=== PATIENT | female | born 1960 | race Two or more races ===

== ENCOUNTER 2022-08-25 06:25 | Inpatient (IN) | payer BC ==
[2022-08-20 10:24] LABS: Basophils # (auto) 0.1 10 ^3/uL (0-0.2); Basophils % (auto) 0.8 % (0.0-2.0); Eosinophils # (auto) 0.3 10 ^3/uL (0-0.8); Hematocrit 45.4 % (36.0-46.0); Hemoglobin 14.9 g/dL (12.2-16.2); Lymphocytes # (auto) 3.8 10 ^3/uL (0.4-5.4); Lymphocytes % (auto) 43.4 % (10.0-50.0); Mean Corpuscular Hemoglobin 29.4 pg (28.0-32.0); Mean Corpuscular Hgb Conc. 32.8 g/dL (32.0-36.0); Mean Corpuscular Volume 89.6 fL (80.0-100.0); Monocytes # (auto) 0.8 10 ^3/uL (0-1.3); Monocytes % (auto) 9.2 % (0.0-12.0); Neutrophils # (auto) 3.8 10 ^3/uL (1.6-8.6); Neutrophils % (auto) 43.6 % (37.0-80.0); Red Blood Cells 5.07 10^6/uL (4.0-5.20); Red Cell Distribution Width 13.5 % (11.8-14.3); White Blood Cell 8.7 10^3/uL (4.4-10.8)
[2022-08-20 10:33] LABS: Urine Bacteria FEW /hpf (None Seen); Urine Blood Negative /uL (Negative); Urine Specific Gravity 1.009 (1.001-1.035); Urine WBC 1 /hpf (0 - 5)
[2022-08-20 11:02] LABS: Albumin 4.2 g/dL (3.4-5.0); Calcium 9.3 mg/dL (8.5-10.1); Potassium 4.6 mmol/L (3.5-5.1)
[2022-08-20 11:05] LABS: Bilirubin, Total 0.4 mg/dL (0.2-1.0); Total Protein 7.8 g/dL (6.4-8.2)
[2022-08-20 11:07] LABS: INR 0.91 (0.9-1.15); Partial Thromboplastin Time 25.5 sec (24.6-33.4)
[~2022-08-25] VITALS: Ht 157.5 cm; Wt 97.8 kg
[~2022-08-25 06:25] MED LIST: BUPR150T8 PO; LEV100T PO
[2022-08-25] MEDS ORDERED: levoFLOXacin 500MG 100 ML IV ONE ×2 (06:48→08:22)
[2022-08-25] MEDS ORDERED: LIDOCAINE W/ EPINEPHRINE 1% 20ML VIAL ONE (06:52)
[2022-08-25] MEDS ORDERED: LIDOCAINE 2% JELLY 11ml (GLYDO) ONE (06:52)
[2022-08-25] MEDS ORDERED: SUCCINYLCHOLINE CHLORIDE 20 MG/ML 10ML VIAL IV ONE (07:33)
[2022-08-25] MEDS ORDERED: MEPERIDINE HCL (50 MG/ML) 1 ML VIAL ONE (07:44)
[2022-08-25] MEDS ORDERED: fentaNYL CITRATE 100 MCG/2 ML VL ONE (07:44)
[2022-08-25] MEDS ORDERED: MIDAZOLAM HCL 2MG/2ML 2ml VIAL (1mg/ml) ONE (07:44)
[2022-08-25] MEDS ORDERED: PROPOFOL 10 MG/ML 20 ML IV ONE (07:50)
[2022-08-25] MEDS ORDERED: DexAMETHasone SOD PHOS 10MG/1ML VIAL INJ ONE (07:50)
[2022-08-25] MEDS ORDERED: Lidocaine/Epinephrine 1%-1:100,000 30ML VL IJ ONE (08:01)
[2022-08-25] MEDS ORDERED: ONDANSETRON HCL 4 MG/2 ML VIAL ONE (08:08)
[2022-08-25] MEDS ORDERED: CLINDAMYCIN 600MG IV 0 ML IV ONE (08:21)
[2022-08-25] MEDS ORDERED: HYDROmorphone HCL 2 MG/ML VL/or syr IV PRN (08:30)
[2022-08-25] MEDS ORDERED: ePHEDrine SULFATE 50 MG/ML AMP IV PRN (08:30)
[2022-08-25] MEDS ORDERED: MORPHINE SULFATE 4 MG/ML SYR/VIAL IV PRN (08:30)
[2022-08-25] MEDS ORDERED: LABETALOL HCL 5 MG/ML 4ML SYRINGE IV PRN (08:30)
[2022-08-25] MEDS ORDERED: MIDAZOLAM HCL 2MG/2ML 2ml VIAL (1mg/ml) IV PRN (08:30)
[2022-08-25] MEDS ORDERED: ONDANSETRON HCL 4 MG/2 ML VIAL IV PRN (08:30)
[2022-08-25] MEDS ORDERED: ROCURONIUM 10MG/ML 10ML VIAL IV ONE (08:32)
[2022-08-25] MEDS ORDERED: SUGAMMADEX 200mg/2ml Vial (100MG/ML) IV ONE (08:56)
[2022-08-25] MEDS ORDERED: D5W/SOD CHL 0.45%/KCL 20MEQ 1,000 ML IV SCH (09:00)
[2022-08-25] MEDS ORDERED: traMADol HCL 50 MG TAB PO PRN (15:00)
[2022-08-25] MEDS ORDERED: MORPHINE SULFATE INJ 2 MG/ml SYRG IV PRN (15:00)
[2022-08-25] MEDS: D5W/SOD CHL 0.45%/KCL 20MEQ 1,000 ML IV SCH ×2 (15:00→21:03)
[2022-08-25 15:47] VITALS: BP 120/60
[2022-08-25 16:18] VITALS: BP 120/61
[2022-08-25] MEDS: levoFLOXacin 750MG 150 ML IV SCH (17:19)
[2022-08-25 22:00] VITALS: BP 124/72
[2022-08-26] MEDS: ONDANSETRON HCL 4 MG/2 ML VIAL IV PRN ×2 (01:04→15:45)
[2022-08-26 05:11] VITALS: BP 118/63
[2022-08-26 06:05] LABS: Basophils # (auto) 0 10 ^3/uL (0-0.2); Basophils % (auto) 0.2 % (0.0-2.0); Eosinophils # (auto) 0 10 ^3/uL (0-0.8); Hematocrit 39.8 % (36.0-46.0); Hemoglobin 13.2 g/dL (12.2-16.2); Lymphocytes # (auto) 2.2 10 ^3/uL (0.4-5.4); Lymphocytes % (auto) 18.9 % (10.0-50.0); Mean Corpuscular Hemoglobin 29.8 pg (28.0-32.0); Mean Corpuscular Hgb Conc. 33.2 g/dL (32.0-36.0); Mean Corpuscular Volume 89.8 fL (80.0-100.0); Monocytes # (auto) 1.2 10 ^3/uL (0-1.3); Monocytes % (auto) 10.8 % (0.0-12.0); Neutrophils # (auto) 8.1 10 ^3/uL (1.6-8.6); Neutrophils % (auto) 70.1 % (37.0-80.0); Nucleated Red Blood Cells % 0.2 %; Red Blood Cells 4.44 10^6/uL (4.0-5.20); Red Cell Distribution Width 13.6 % (11.8-14.3); White Blood Cell 11.6 10^3/uL (4.4-10.8)
[2022-08-26] MEDS: D5W/SOD CHL 0.45%/KCL 20MEQ 1,000 ML IV SCH (06:30)
[2022-08-26 06:40] LABS: Potassium 3.8 mmol/L (3.5-5.1)
[2022-08-26 06:51] LABS: BUN/Creatinine Ratio 17.3; Calcium 9.2 mg/dL (8.5-10.1)
[2022-08-26 08:15] VITALS: BP 116/67
[2022-08-26 08:56] VITALS: BP 116/67
[2022-08-26] MEDS ORDERED: KETOROLAC TROMETH 30 MG/ML 1ML VIAL IV PRN (10:00)
[2022-08-26] MEDS: levoFLOXacin 750MG 150 ML IV SCH (10:47)
[2022-08-26 13:00] VITALS: BP 111/66
[2022-08-26] MEDS ORDERED: MAALOX PLUS or MAALOX 30 ML PO ONE (16:00)
[2022-08-26 16:12] VITALS: BP 124/65
[2022-08-26 22:00] VITALS: BP 135/74
[2022-08-27] MEDS ORDERED: PANTOPRAZOLE 40 MG/10 ML VIAL INJ IV ONE (00:15)
[2022-08-27] MEDS: D5W/SOD CHL 0.45%/KCL 20MEQ 1,000 ML IV SCH ×3 (02:48→18:05)
[2022-08-27 05:00] VITALS: BP 141/78
[2022-08-27] MEDS ORDERED: LEVOTHYROXINE SODIUM 50 MCG TAB PO SCH (07:00)
[2022-08-27 08:00] VITALS: BP_SYST 141; BP_SYST 148; BP_DIAS 76
[2022-08-27] MEDS: levoFLOXacin 750MG 150 ML IV SCH (09:02)
[2022-08-27] MEDS ORDERED: PANTOPRAZOLE 40 MG/10 ML VIAL INJ IV SCH (10:00)
[2022-08-27 13:13] VITALS: BP 151/73
[2022-08-27] MEDS ORDERED: LEVO-28 PO (15:55)
[2022-08-27 17:00] VITALS: BP_SYST 134; BP_SYST 141; BP_DIAS 76; BP_DIAS 90
[2022-08-27 17:15] VITALS: BP 151/73
== END 2022-08-27 18:51 | disposition home or self-care (01) | DRG 354 ==
LOC: SUR 06:25 → CENTRAL 14:56
PROVIDERS: ADMIT Internal Medicine; ATTEND Internal Medicine
PROC: 0WUF0JZ Supplement Abdominal Wall with Synthetic Substitute, Open Approach (ICD-10-PCS; principal; 2022-08-25 07:41)
DX: K43.2 Incisional hernia without obstruction or gangrene (principal); N39.0 Urinary tract infection, site not specified; E03.9 Hypothyroidism, unspecified; K43.9 Ventral hernia without obstruction or gangrene; F41.9 Anxiety disorder, unspecified; E66.01 Morbid (severe) obesity due to excess calories; F32.A Depression, unspecified; Z88.0 Allergy status to penicillin; Z68.39 Body mass index [BMI] 39.0-39.9, adult; Z88.5 Allergy status to narcotic agent
CPT/HCPCS: 36415; 80048; 80053; 81001; 84443; 85025; 85610; 85730; 86850; 86900; 86901; 87086; C9113; G0378; J0330; J1100; J1956; J2250; J2405; J2704; J3490